=== PATIENT | male | born 2000 | race Caucasian/White ===

== ENCOUNTER 2018-04-27 18:02 | Emergency (ER) | payer SELFPAY ==
[~2018-04-27] VITALS: Ht 170.2 cm; Wt 60.0 kg
[2018-04-27 18:04] VITALS: BP 144/69
== END 2018-04-27 22:11 | disposition left against medical advice (07) ==
LOC: ER 18:02
DX: Z53.21 Procedure and treatment not carried out due to patient leaving prior to being seen by health care provider (principal)